=== PATIENT | male | born 1965 | race Caucasian/White ===

== ENCOUNTER 2018-04-30 11:53 | Emergency (ER) | payer BC, OTHER ==
[2018-04-30 11:59] VITALS: BP 161/89
--- NOTE | 2018-04-30 12:08 | UC ---
Back Pain HPI - HPI Summary HPI Summary: 52-year-old male presents with complaints of right lower back pain for the past 4 days. States this morning he bent over and the pain became very severe and radiating to his right lower quadrant and into his right testicle. This was associated with some nausea but no vomiting. States the pain is constant and sharp and worsens with movement and when he flexes his right leg. Denies fever , chills, chest pain, shortness of breath, vomiting, diarrhea, dysuria, frequency, urgency, hematuria, penile discharge, testicular or scrotal swelling. - History of Current Complaint Chief Complaint: UCBackPain Stated Complaint: BACK PAIN Time Seen by Provider: 04/30/18 12:06 Hx Obtained From: Patient Pain Intensity: 6 - Allergies/Home Medications Allergies/Adverse Reactions: Allergies Allergy/AdvReac Type Severity Reaction Status Date / Time No Known Allergies Allergy Verified 04/30/18 11:59 Home Medications: Home Medications Metoprolol Succinate [Metoprolol Succinate ER] 25 mg PO DAILY 04/30/18 [History Confirmed 04/30/18] Pravastatin Sodium 20 mg PO DAILY 04/30/18 [History Confirmed 04/30/18] PMH/Surg Hx/FS Hx/Imm Hx Endocrine History: Dyslipidemia Cardiovascular History: Hypertension - Surgical History Surgical History: None - Family History Known Family History: Positive: Non-Contributory - Social History Occupation: Employed Full-time Lives: With Family Alcohol Use: None Substance Use Type: None Smoking Status (MU): Never Smoked Tobacco Review of Systems All Other Systems Reviewed And Are Negative: Yes Constitutional: Positive: Chills. Negative: Fever Skin: Negative: Rash Respiratory: Positive: Negative Cardiovascular: Positive: Negative Gastrointestinal: Positive: Abdominal Pain, Nausea. Negative: Vomiting, Diarrhea Genitourinary: Negative: Dysuria, Hematuria, Frequency, Urgency Motor: Negative: Weakness Neurovascular: Negative: Decreased Sensation Musculoskeletal: Positive: Other: - See HPI Neurological: Negative: Weakness, Paresthesia, Numbness Is Patient Immunocompromised?: No Physical Exam - Summary Physical Exam Summary: GENERAL APPEARANCE: Well developed, well nourished, alert and cooperative adult male who appears to be uncomfortable with movement. CARDIAC: Normal S1 and S2. No S3, S4 or murmurs. Rhythm is regular. There is no peripheral edema, cyanosis or pallor. Extremities are warm and well perfused. Capillary refill is less than 2 seconds. Peripheral pulses intact. LUNGS: Clear to auscultation without rales, rhonchi, wheezing or diminished breath sounds. ABDOMEN: Positive bowel sounds. Soft, nondistended, nontender. No guarding or rebound. No masses or hepatosplenomegally. No CVA tenderness. GENITALIA: Normal penis. No discharge, scrotal or testicular tenderness or swelling. MUSKULOSKELETAL: ROM intact to all extremities. No joint erythema or tenderness. Normal muscular development. Normal gait. BACK: Examination of the spine reveals normal gait and posture, no spinal deformity or tenderness, decreased range of motion or muscular spasm. NEUROLOGICAL: Strength and sensation symmetric and intact throughout. SKIN: Skin normal color, texture and turgor with no lesions or eruptions. Triage Information Reviewed: Yes Vital Signs: Initial Vital Signs Temp 98 F 04/30/18 11:56 Pulse 85 04/30/18 11:56 Resp 18 04/30/18 11:56 BP 161/89 04/30/18 11:56 Pulse Ox 100 04/30/18 11:56 Vital Signs Reviewed: Yes Diagnostics - Laboratory Diagnostic Studies Completed/Ordered: POC UA 1+ protein otherwise normal. Back Pain Course/Dx - Course Course Of Treatment: 52-year-old male presents with complaints of right lower back pain for the past 4 days. States this morning he bent over and the pain became very severe and radiating to his right lower quadrant and into his right testicle. This was associated with some nausea but no vomiting. States the pain is constant and sharp and worsens with movement and when he flexes his right leg. Denies fever, chills, chest pain, shortness of breath, vomiting, diarrhea, dysuria, frequency, urgency, hematuria, penile discharge, testicular or scrotal swelling. Afebrile. Blood pressure was noted to be elevated otherwise vital signs were stable. Exam revealed an adult male who appeared visibly uncomfortable when he was moving around the room. His exam was overall unremarkable. [id number] urinalysis was normal. Considering that I could not reproduce his pain with palpation, the absence of blood in his urine, and pain that was radiating to the right lower quadrant and testicle I recommended that the patient be evaluated in the emergency room as I could not exclude the possibility of appendicitis or obstructing kidney stone. Patient declined ED evaluation requesting treatment for low back pain. The patient is clinically sober, free from distracting injury, appears to have insight and reasoning and in my judgment has capacity to make decisions. I have explained that I am concerned that his symptoms may represent appendicitis or an obstructing kidnet stone despite the negative urine and absence of acute abdominal tenderness. He verbalizes understanding of my concern. I discussed the need for further evaluation in the emergency room to obtain more information about the source of his pain and told the patient if he chooses not to have any further evaluation he could have worsening of symptoms, become critically ill, suffer diability, and even possibly . The paient continues to decline any further evaluation and is being discharged to home against medical advice. I am recommending NSAIDs and warm moist heat for treatment of acute low back pain, He is to follow up with his primary care provider within 2 days for recheck of his symptoms. Warning symptoms requiring immediate evaluation in the ED were reviewed with the patient. Verblizes understanding and agrees with POC. - Differential Dx/Diagnosis Differential Diagnosis/HQI/PQRI: Herniated Disc, Renal Colic, Strain, Other - Appendicitis Provider Diagnosis: Flank pain, acute Discharge - Sign-Out/Discharge Documenting (check all that apply): Patient Departure All imaging exams completed and their final reports reviewed: No Studies - Discharge Plan Condition: Stable Disposition: AGAINST MEDICAL ADVICE Prescriptions: Naproxen [Naproxen 500 mg tab] 500 mg PO Q12HR #30 tablet Patient Education Materials: Flank Pain (ED) Referrals: Jaime Murray MD [Primary Care Provider] - As Soon As Possible Additional Instructions: The urine test performed in the clinic today showed no evidence of blood or infection. You pain may be related to low back strain however I cannot exclude the possibility of appendicitis with the pain that radiates into the right lower abdomen and testicle. Take naproxen 500 mg every 12 hours with food for pain. Use warm moist heat to the affected area for 15-20 minutes at least 4 times a day. Follow up with your primary care provider as soon as possible for re-evaluation. Seek immediate medical attention in the emergency room if you develop fever greater than 100.5 F, have worsening abdominal pain, persistent vomiting, or any worsening of symptoms. - Billing Disposition and Condition Condition: STABLE Disposition: Against Medical Advice - Attestation Statements Provider Attestation: Per institutional requirements, I have reviewed the chart, however, I was not consulted specifically or made aware of this patient by the midlevel provider. I did not personally evaluate, interact with , or disposition this patient.
== END 2018-04-30 13:15 | disposition left against medical advice (07) ==
LOC: UCEAST 11:53
DX: R10.9 Unspecified abdominal pain (principal); M54.5 Low back pain; R11.0 Nausea; R10.31 Right lower quadrant pain; I10 Essential (primary) hypertension; Z79.899 Other long term (current) drug therapy
CPT/HCPCS: 81003; 99212; G0463